=== PATIENT | female | born 1990 | race African-American/Black ===

== ENCOUNTER 2019-04-06 20:55 | Emergency (ER) | payer MEDICAID ==
[~2019-04-06] VITALS: Ht 154.9 cm; Wt 59.0 kg
[2019-04-06 23:13] VITALS: BP 103/71
== END 2019-04-06 23:14 | disposition home or self-care (01) ==
LOC: ER 21:05
DX: J32.9 Chronic sinusitis, unspecified (principal); L03.90 Cellulitis, unspecified; F17.290 Nicotine dependence, other tobacco product, uncomplicated; F12.10 Cannabis abuse, uncomplicated; Z88.1 Allergy status to other antibiotic agents
CPT/HCPCS: 99282; 99283

== ENCOUNTER 2023-08-29 10:21 | Emergency (ER) | payer MEDICAID ==
[~2023-08-29] VITALS: Ht 165.1 cm; Wt 70.0 kg
[2023-08-29 10:22] VITALS: TEMP 98.9; O2SAT 99
[2023-08-29 11:09] LABS: BASOPHILS % 0.4 % (0.0-2.0); EOSINOPHILS % 3.1 % (0.0-5.0); HEMATOCRIT. 37.6 % (36.0-48.0); HEMOGLOBIN. 12.1 g/dL (12.0-16.0); LYMPHOCYTES % 11.9 % (20.0-50.0); MEAN CORPUSCULAR HGB CONC 32.3 g/dL (31.0-37.0); MEAN CORPUSCULAR VOLUME 83.7 fL (81.0-99.0); MEAN PLATELET VOLUME 6.9 fl (7.4-10.4); MONOCYTES % 0.7 % (2.0-8.0); NEUTROPHILS % 83.9 % (40.0-76.0); PLATELET 303 x1000/uL (130-400); RED BLOOD CELL COUNT 4.49 mill/uL (4.2-5.4); RED CELL DISTRIBUTION WIDTH 13.3 % (11.6-14.6); WHITE BLOOD COUNT 2.6 x1000/uL (4.5-11.0)
[2023-08-29 11:17] LABS: CARBON DIOXIDE 25 mEq/L (21-32); CHLORIDE 107 mEq/L (98-107); POTASSIUM 3.7 mEq/L (3.5-5.1); SODIUM 136 mEq/L (136-145)
[2023-08-29 11:18] LABS: CALCIUM 9.1 mg/dL (8.7-10.4)
[2023-08-29 11:22] LABS: CREATININE 0.8 mg/dL (0.6-1.0); GLUCOSE 95 mg/dL (70-105)
[2023-08-29 11:23] LABS: UREA NITROGEN BLOOD 11 mg/dL (9-23)
[2023-08-29 11:24] LABS: ALANINE AMINOTRANSFERASE 17 IU/L (10-49); ALBUMIN 4.2 g/dL (3.2-4.8); ASPARTATE AMINOTRANSFERASE 26 IU/L (<34)
[2023-08-29 11:25] LABS: BILIRUBIN TOTAL 0.4 mg/dL (0.1-1.0); PROTEIN TOTAL 7.1 g/dL (6.0-8.3)
[2023-08-29 11:30] LABS: B-HCG QUANTITATIVE < 1 mIU/mL (<3)
[2023-08-29 12:08] LABS: CLARITY URINE CLOUDY (CLEAR); COLOR URINE YELLOW (YELLOW); GLUCOSE URINE NEGATIVE (NEGATIVE); KETONES URINE NEGATIVE (NEGATIVE); LEUKOCYTE ESTERASE URINE 1+ (NEGATIVE); NITRITE URINE NEGATIVE (NEGATIVE); OCCULT BLOOD URINE 2+ (NEGATIVE); PROTEIN URINE NEGATIVE (NEGATIVE); SPECIFIC GRAVITY URINE 1.015 (1.005-1.030); UROBILINOGEN URINE 0.2 E.U./dL (0.2-1.0)
[2023-08-29 12:31] LABS: SQUAMOUS EPITHELIAL CELL URINE 2+ /lpf (RARE/1+)
[2023-08-29 12:32] LABS: FINE GRANULAR CASTS URINE 0-5 /lpf
[2023-08-29 12:33] LABS: BACTERIA URINE 3+; RBC URINE 25-50 /hpf (0-2)
[2023-08-29] MEDS: ACETAMINOPHEN 325MG TABLET PO ONE (13:03)
[2023-08-29 13:10] VITALS: BP 116/76; PULSE 102; RESP 18
[2023-08-29] MEDS ORDERED: CEPH500T MT (13:14)
== END 2023-08-29 14:30 | disposition home or self-care (01) ==
LOC: ER 10:21
DX: N39.0 Urinary tract infection, site not specified (principal); F12.10 Cannabis abuse, uncomplicated; Z88.6 Allergy status to analgesic agent
CPT/HCPCS: 80053; 81003; 81025; 84702; 85025; 36415; 76830; 76856; 99284; Z7610